=== PATIENT | female | born 1980 | race Caucasian/White ===

== ENCOUNTER 2017-05-08 19:19 | Emergency (ER) | payer MEDICAID ==
[~2017-05-08] VITALS: Ht 175.3 cm; Wt 60.0 kg
[~2017-05-08 19:19] MED LIST: CLON1TAB23; DOCU-30 PO; ETAN50PE IM; FLAX100029 PO; FOLI-17 PO; HYDR-3144 PO; HYDR-3240; KETO10TA PO; PROM25SU35 PR; PROM25TA10 PO; PROM50VI; TRAM-28 PO; ZOLP10TA PO; ZOLP5TAB2
[2017-05-08] MEDS ORDERED: PROMETHAZINE 25 MG/ML, 1ML IM ONE (20:30)
[2017-05-08] MEDS ORDERED: MORPHINE SULFATE 4 MG/ML, 1ML IVPush PRN (20:30)
[2017-05-08] MEDS ORDERED: SODIUM CHLORIDE FLUSH 10ML SYR IVF ONE (20:30)
[2017-05-08] MEDS ORDERED: SODIUM CHLORIDE 0.9% 1,000ML IVBOLUS ONE (20:30)
[2017-05-08 21:04] LABS: ASPARTATE AMINO TRANSFERASE 16 U/L (15-37); BLOOD UREA NITROGEN 10 mg/dL (7-18)
[2017-05-08] MEDS ORDERED: MORPHINE SULFATE 4 MG/ML, 1ML ONE (21:27)
[2017-05-08] MEDS ORDERED: PROMETHAZINE 25 MG/ML, 1ML ONE (21:27)
[2017-05-08 22:45] VITALS: BP 134/92
[2017-05-08] MEDS ORDERED: OMNIPAQUE 350 MG/ML, 100ML BOTTLE ONE (22:48)
== END 2017-05-08 23:47 | disposition home or self-care (01) ==
LOC: ED 21:52
DX: R10.31 Right lower quadrant pain (principal); R11.0 Nausea; Z90.710 Acquired absence of both cervix and uterus
CPT/HCPCS: 36415; 74177; 76856; 80053; 81003; 85025; 96361; 96372; 96374; 99285; J2550; J7030; Q9967

== ENCOUNTER 2018-05-30 21:54 | Emergency (ER) | payer MEDICAID ==
[~2018-05-30] VITALS: Ht 175.3 cm; Wt 65.0 kg
[~2018-05-30 21:54] MED LIST changes: +DOCU-131 PO; -DOCU-30 PO; -HYDR-3144 PO; +HYDR-3245 PO; -TRAM-28 PO; +TRAM-47 PO
[2018-05-30 21:56] VITALS: BP 137/88
[2018-05-30] MEDS ORDERED: HYDROcodone/APAP 5/325 TABLET ONE (22:27)
[2018-05-30] MEDS ORDERED: HYDROcodone/APAP 5/325 TABLET PO ONE (22:30)
[2018-05-30] MEDS ORDERED: KETOROLAC 30 MG/1 ML ONE (23:17)
[2018-05-30] MEDS ORDERED: KETOROLAC 30 MG/1 ML IM ONE (23:30)
== END 2018-05-30 23:25 | disposition home or self-care (01) ==
LOC: ED 23:20
DX: M75.91 Shoulder lesion, unspecified, right shoulder (principal); G43.909 Migraine, unspecified, not intractable, without status migrainosus
CPT/HCPCS: 73030; 96372; 99284; J1885

== ENCOUNTER 2018-10-04 22:26 | Emergency (ER) | payer MEDICAID ==
[~2018-10-04] VITALS: Ht 175.3 cm; Wt 64.3 kg
[2018-10-04 22:30] VITALS: BP 127/51
== END 2018-10-04 22:54 | disposition home or self-care (01) ==
LOC: ED 22:30
DX: M79.671 Pain in right foot (principal); M79.672 Pain in left foot; F17.200 Nicotine dependence, unspecified, uncomplicated; Z88.5 Allergy status to narcotic agent; Z88.8 Allergy status to other drugs, medicaments and biological substances
CPT/HCPCS: 99283

== ENCOUNTER 2019-04-23 17:45 | Emergency (ER) | payer MEDICAID ==
[~2019-04-23] VITALS: Ht 175.3 cm; Wt 70.0 kg
[2019-04-23 18:31] LABS: BASOPHILS # (AUTO) 0.04 x10^3/uL (0-0.1); BASOPHILS % (AUTO) 1 % (0-1); EOSINOPHILS # (AUTO) 0.25 x10^3/uL (0-0.4); EOSINOPHILS % (AUTO) 4 % (1-7); LYMPHOCYTES # (AUTO) 2.85 x10^3/uL (1-3.4); LYMPHOCYTES % (AUTO) 43 % (22-44); MD NO; MEAN CORPUSCULAR HEMOGLOBIN 29.7 pg (27.0-34.8); MEAN CORPUSCULAR HGB CONC 33.1 g/dL (32.4-35.8); MEAN CORPUSCULAR VOLUME 89.7 fL (80-100); MEAN PLATELET VOLUME 6.5 fL (7.4-10.4); MONOCYTES # (AUTO) 0.38 x10^3/uL (0.2-0.8); MONOCYTES % (AUTO) 6 % (2-9); NEUTROPHILS # (AUTO) 3.12 x10^3/uL (1.8-6.8); NEUTROPHILS % (AUTO) 47 % (42-75); PLATELET COUNT 378 x10^3/uL (130-400); RED BLOOD COUNT 4.81 x10^6/uL (3.82-5.3); RED CELL DISTRIBUTION WIDTH 13.3 % (9.6-15.2)
[2019-04-23 18:43] LABS: ALBUMIN 3.8 g/dL (3.4-5.0); ANION GAP 4 mmol/L (5-15); CALCIUM 8.7 mg/dL (8.5-10.1); CHLORIDE 111 mmol/L (98-107)
[2019-04-23 18:48] LABS: ALANINE AMINOTRANSFERASE 23 U/L (12-78); ALKALINE PHOSPHATASE 59 U/L (45-117); BILIRUBIN,TOTAL 0.4 mg/dL (0.2-1.0); CREATININE 0.72 mg/dL (0.55-1.02); TOTAL PROTEIN 7.2 g/dL (6.4-8.2); TROPONIN I < 0.015 ng/mL (0.000-0.045)
--- NOTE | 2019-04-23 18:48 | NUR ---
Pt to rm [facility]
--- NOTE | 2019-04-23 19:06 | NUR ---
PT AMBULATED STEADILY TO ROOM WITH CONTRACTS MANAGER. PT CO SUDDEN ONSET BUE/BLE TINGLING AND CHEST TIGHTNESS X TODAY WHILE LAYING IN BED. RESPIRATIONS SLIGHTLY RAPID, 20'S. SPO2 >90% ON RA. NAD NOTED. PT ALSO CO RLQ PAIN X "ABOUT A WEEK". DENIES N/V/D/FEVER. "I HAVE A BLADDER SLING RIGHT THERE". HX OF HYST. DENIES URINARY S/S. BP/SPO2/ECG MONITORING IN PLACE. NSR ON MONITOR. UA COLLECTED AND WALKED TO LAB
[2019-04-23 19:11] LABS: MICROSCOPIC NOT IND
[2019-04-23 19:14] LABS: CULTURE INDICATED? NO
[2019-04-23] MEDS ORDERED: KETOROLAC 30 MG/1 ML IM ONE (19:30)
[2019-04-23] MEDS ORDERED: KETOROLAC 30 MG/1 ML ONE (19:48)
--- NOTE | 2019-04-23 19:52 | NUR ---
MEDICATED PER EMAR FOR 05/23 PAIN
--- NOTE | 2019-04-23 20:32 | NUR ---
PT IN US AT THIS TIME
[2019-04-23 21:30] VITALS: BP 110/70
--- NOTE | 2019-04-23 21:31 | NUR ---
PT RESTING QUIETLY IN NEGRO BLUE NOTED. AWAKE/ALERT. PT UPDATED TO POC (AWAITING US READ/RECHECK/DISPO) AND DEMONSTRATES UNDERSTANDING. CALLED [employer] TO FOLLOW UP ON STATUS OF US READ. [employer] STATES THAT "RADIOLOGIST WAS WAITING TO COMBINE BOTH READS AND IT MAY TAKE A DAY". ERP MADE AWARE. NO NEW ORDERS RECEIVED
--- NOTE | 2019-04-23 21:57 | NUR ---
DC EDUCATION PROVIDED, PT DEMONSTRATES UNDERSTANDING. PT AMBULATED STEADILY TO [facility] RN
== END 2019-04-23 21:58 | disposition home or self-care (01) ==
LOC: ED 20:16
DX: R07.89 Other chest pain (principal); R10.31 Right lower quadrant pain; F45.8 Other somatoform disorders; F17.200 Nicotine dependence, unspecified, uncomplicated; M06.9 Rheumatoid arthritis, unspecified; Z88.5 Allergy status to narcotic agent; Z90.710 Acquired absence of both cervix and uterus
CPT/HCPCS: 36415; 76830; 76857; 80053; 81003; 83690; 83880; 84484; 85025; 93005; 96372; 99284; J1885

== ENCOUNTER 2020-08-14 18:24 | Emergency (ER) | payer MEDICAID ==
[~2020-08-14] VITALS: Ht 175.3 cm; Wt 66.5 kg
[2020-08-14 19:12] LABS: MICROSCOPIC NOT IND
--- NOTE | 2020-08-14 19:58 | NUR ---
precision grinder external: Pt to room from lobby at this time.
[2020-08-14] MEDS ORDERED: SODIUM CHLORIDE FLUSH 10ML SYR IVF ONE (20:00)
[2020-08-14] MEDS ORDERED: MORPHINE SULFATE 4 MG/ML, 1ML IVPush PRN (20:00)
[2020-08-14] MEDS ORDERED: PROMETHAZINE 25 MG/ML, 1ML IM ONE (20:00)
[2020-08-14] MEDS ORDERED: PROMETHAZINE 25 MG/ML, 1ML ONE (20:06)
[2020-08-14] MEDS ORDERED: MORPHINE SULFATE 4 MG/ML, 1ML ONE ×2 (20:06→22:46)
[2020-08-14 20:35] LABS: BASOPHILS # (AUTO) 0.05 x10^3/uL (0-0.1); BASOPHILS % (AUTO) 1 % (0-1); EOSINOPHILS # (AUTO) 0.15 x10^3/uL (0-0.4); EOSINOPHILS % (AUTO) 2 % (1-7); LYMPHOCYTES # (AUTO) 2.39 x10^3/uL (1-3.4); LYMPHOCYTES % (AUTO) 34 % (22-44); MD NO; MEAN CORPUSCULAR HEMOGLOBIN 28.8 pg (27.0-34.8); MEAN CORPUSCULAR HGB CONC 33.2 g/dL (32.4-35.8); MEAN PLATELET VOLUME 7.3 fL (7.4-10.4); MONOCYTES # (AUTO) 0.31 x10^3/uL (0.2-0.8); MONOCYTES % (AUTO) 4 % (2-9); NEUTROPHILS # (AUTO) 4.19 x10^3/uL (1.8-6.8); NEUTROPHILS % (AUTO) 59 % (42-75); PLATELET COUNT 394 x10^3/uL (130-400)
[2020-08-14 20:44] LABS: ALANINE AMINOTRANSFERASE 19 U/L (12-78); ALBUMIN 4.1 g/dL (3.4-5.0); ANION GAP 7 mmol/L (5-15); CALCIUM 9.2 mg/dL (8.5-10.1); CHLORIDE 107 mmol/L (98-107)
[2020-08-14 20:46] LABS: ALKALINE PHOSPHATASE 55 U/L (45-117); BILIRUBIN,TOTAL 0.4 mg/dL (0.2-1.0); TOTAL PROTEIN 7.6 g/dL (6.4-8.2)
--- NOTE | 2020-08-14 21:01 | NUR ---
Traveled to [place] with [email or web address]
[2020-08-14] MEDS ORDERED: FLUCONAZOLE 100 MG TABLET PO ONE (22:30)
[2020-08-14] MEDS ORDERED: FLUCONAZOLE 100 MG TABLET ONE (22:30)
[2020-08-14] MEDS ORDERED: METOCLOPRAMIDE 5 MG/ML, 2ML ONE (22:44)
[2020-08-14] MEDS ORDERED: METOCLOPRAMIDE 5 MG/ML, 2ML IVPush ONE (23:00)
[2020-08-14] MEDS ORDERED: METOCLOPRAMIDE 10MG TABLET PO PRN (23:00)
[2020-08-15 00:08] VITALS: BP 111/71
--- NOTE | 2020-08-15 00:09 | NUR ---
[facility] care, meds, and f/u discussed with task RN
== END 2020-08-15 00:10 | disposition home or self-care (01) ==
LOC: ED 20:09
DX: N83.291 Other ovarian cyst, right side (principal); R33.9 Retention of urine, unspecified; B37.3 Candidiasis of vulva and vagina; M06.9 Rheumatoid arthritis, unspecified; Z90.710 Acquired absence of both cervix and uterus
CPT/HCPCS: 36415; 76830; 80053; 81003; 85025; 96372; 96374; 99284; J2270; J2550

== ENCOUNTER 2020-08-15 12:49 | Emergency (ER) | payer MEDICAID ==
[~2020-08-15] VITALS: Ht 175.3 cm; Wt 67.8 kg
[2020-08-15 13:54] LABS: BASOPHILS # (AUTO) 0.06 x10^3/uL (0-0.1); BASOPHILS % (AUTO) 1 % (0-1); EOSINOPHILS # (AUTO) 0.18 x10^3/uL (0-0.4); EOSINOPHILS % (AUTO) 3 % (1-7); LYMPHOCYTES # (AUTO) 2.33 x10^3/uL (1-3.4); LYMPHOCYTES % (AUTO) 33 % (22-44); MD NO; MEAN CORPUSCULAR HEMOGLOBIN 28.9 pg (27.0-34.8); MEAN PLATELET VOLUME 7.1 fL (7.4-10.4); MONOCYTES % (AUTO) 4 % (2-9); NEUTROPHILS # (AUTO) 4.28 x10^3/uL (1.8-6.8); NEUTROPHILS % (AUTO) 60 % (42-75); PLATELET COUNT 365 x10^3/uL (130-400); RED BLOOD COUNT 4.79 x10^6/uL (3.82-5.3); RED CELL DISTRIBUTION WIDTH 13.3 % (9.6-15.2)
--- NOTE | 2020-08-15 13:55 | NUR ---
TO LORNA FROM LOBBY
[2020-08-15 14:05] LABS: ALANINE AMINOTRANSFERASE 19 U/L (12-78); ALBUMIN 4.1 g/dL (3.4-5.0); ANION GAP 5 mmol/L (5-15); CHLORIDE 106 mmol/L (98-107); CREATININE 0.79 mg/dL (0.55-1.02)
[2020-08-15 14:08] LABS: ALKALINE PHOSPHATASE 56 U/L (45-117); BILIRUBIN,TOTAL 0.4 mg/dL (0.2-1.0); TOTAL PROTEIN 7.8 g/dL (6.4-8.2)
--- NOTE | 2020-08-15 14:33 | NUR ---
BEDSIDE REPORT TO CJ LARA
[2020-08-15 14:52] LABS: MICROSCOPIC AUTO
[2020-08-15] MEDS ORDERED: OXYcodone/APAP 5/325MG TABLET ONE (15:19)
[2020-08-15] MEDS ORDERED: OXYcodone/APAP 5/325MG TABLET PO ONE (15:30)
[2020-08-15 15:35] VITALS: BP 103/55
== END 2020-08-15 15:43 | disposition home or self-care (01) ==
LOC: ED 13:59
DX: R10.2 Pelvic and perineal pain (principal); R33.9 Retention of urine, unspecified; R31.9 Hematuria, unspecified; Z87.891 Personal history of nicotine dependence
CPT/HCPCS: 36415; 51702; 80053; 81001; 85025; 87086; 99284

== ENCOUNTER 2020-08-25 15:05 | Emergency (ER) | payer MEDICAID ==
[~2020-08-25] VITALS: Ht 175.3 cm; Wt 67.6 kg
[2020-08-25 15:09] VITALS: BP 133/67
[2020-08-25] MEDS ORDERED: MORPHINE SULFATE 4 MG/ML, 1ML IVPush PRN (15:30)
[2020-08-25] MEDS ORDERED: SODIUM CHLORIDE FLUSH 10ML SYR IVF ONE (15:30)
[2020-08-25] MEDS ORDERED: ONDANSETRON 2MG/ML, 2ML IVPush ONE (15:30)
[2020-08-25] MEDS ORDERED: ONDANSETRON 2MG/ML, 2ML ONE (15:43)
[2020-08-25] MEDS ORDERED: MORPHINE SULFATE 4 MG/ML, 1ML ONE (15:43)
[2020-08-25] MEDS ORDERED: METOCLOPRAMIDE 5 MG/ML, 2ML ONE (15:49)
[2020-08-25 15:59] LABS: BASOPHILS % (AUTO) 1 % (0-1); EOSINOPHILS % (AUTO) 2 % (1-7); LYMPHOCYTES % (AUTO) 29 % (22-44); MEAN CORPUSCULAR HEMOGLOBIN 28.5 pg (27.0-34.8); MEAN CORPUSCULAR HGB CONC 33.3 g/dL (32.4-35.8); MEAN PLATELET VOLUME 7.1 fL (7.4-10.4); MONOCYTES % (AUTO) 6 % (2-9); NEUTROPHILS % (AUTO) 63 % (42-75); PLATELET COUNT 325 x10^3/uL (130-400); RED BLOOD COUNT 4.87 x10^6/uL (3.82-5.3); RED CELL DISTRIBUTION WIDTH 12.8 % (9.6-15.2)
[2020-08-25] MEDS ORDERED: METOCLOPRAMIDE 5 MG/ML, 2ML IVPush ONE (16:00)
[2020-08-25 16:02] LABS: MD NO
[2020-08-25 16:07] LABS: MICROSCOPIC INDICATED
[2020-08-25 16:09] LABS: ALBUMIN 4.1 g/dL (3.4-5.0); ANION GAP 6 mmol/L (5-15); CHLORIDE 109 mmol/L (98-107)
[2020-08-25 16:16] LABS: ALANINE AMINOTRANSFERASE 19 U/L (12-78); ALKALINE PHOSPHATASE 58 U/L (45-117); BILIRUBIN,TOTAL 0.4 mg/dL (0.2-1.0); CREATININE 0.73 mg/dL (0.55-1.02)
--- NOTE | 2020-08-25 16:28 | NUR ---
PT COMES IN WITH COMPLAINTS OF LOWER ABDOMINAL PAIN WORENING. STATES SHE WAS JUST HERE AND HAS AN APPT WITH URINOLOGY COMING UP BUT COULDNT WAIT. PT STATES THAT SHE WAS SWABBED FOR COVID YESTERDAY. PATIENT DENIES SYMPTOMS, NOTED TO HAVE OCCATIONAL COUGH.
[2020-08-25] MEDS ORDERED: HYDROmorphone 2 MG/ML, 1ML ONE (16:58)
[2020-08-25] MEDS ORDERED: HYDROmorphone 2 MG/ML, 1ML IVPush PRN (17:00)
--- NOTE | 2020-08-25 17:56 | NUR ---
RX FOR ZOFRAN CANCELLED, PT TO JUST TAKE BENADRYL FOR NAUSEA OK PER ERP.
== END 2020-08-25 17:58 | disposition home or self-care (01) ==
LOC: ED 15:30
DX: N83.291 Other ovarian cyst, right side (principal); R10.31 Right lower quadrant pain; M06.9 Rheumatoid arthritis, unspecified; Z90.710 Acquired absence of both cervix and uterus; Z87.891 Personal history of nicotine dependence
CPT/HCPCS: 36415; 76830; 80053; 81001; 84703; 85025; 87086; 96374; 96375; 99284; J1170; J2270; J2765

== ENCOUNTER 2020-09-02 12:48 | Emergency (ER) | payer MEDICAID ==
[~2020-09-02] VITALS: Ht 175.3 cm; Wt 65.3 kg
[2020-09-02 12:51] VITALS: BP 119/72
--- NOTE | 2020-09-02 13:01 | NUR ---
INITIAL PT CONTACT. PT PRESENTS TO ED C/O BILATERAL WRIST PAIN, RIGHT ANKLE PAIN, RIGHT ALEJANDRO PAIN AND NECK PAIN FOLLOWING A FALL OUT OF BED SPEECH COMMUNICATION PROFESSOR. PT STATES SHE WAS "TRYING TO GET HER PHONE OFF OF THE BEDSIDE TABLE AND HIT HER BODY ON THE GROUND AND NIGHTSTAND". PT STATES SHE ALSO HAS RLQ ABD PAIN, PT STATES "I HAVE OVARIAN CYSTS AND I THINK ONE RUPTURED". PT DENIES ANY NEEDS AT THIS TIME. CALL LIGHT WITHIN REACH. WILL CONTINUE TO MONITOR.
[2020-09-02] MEDS ORDERED: KETOROLAC 30 MG/1 ML ONE (13:11)
--- NOTE | 2020-09-02 13:20 | NUR ---
PT TO IMAGING
[2020-09-02] MEDS ORDERED: KETOROLAC 30 MG/1 ML IM ONE (13:30)
[2020-09-02 13:42] LABS: BASOPHILS % (AUTO) 1 % (0-1); EOSINOPHILS % (AUTO) 2 % (1-7); LYMPHOCYTES % (AUTO) 38 % (22-44); MEAN CORPUSCULAR HEMOGLOBIN 28.1 pg (27.0-34.8); MEAN CORPUSCULAR HGB CONC 33.1 g/dL (32.4-35.8); MONOCYTES % (AUTO) 6 % (2-9); NEUTROPHILS % (AUTO) 53 % (42-75); PLATELET COUNT 345 x10^3/uL (130-400); RED BLOOD COUNT 4.63 x10^6/uL (3.82-5.3); RED CELL DISTRIBUTION WIDTH 13.2 % (9.6-15.2)
[2020-09-02 13:44] LABS: MD NO
[2020-09-02 13:46] LABS: ALBUMIN 3.9 g/dL (3.4-5.0); ANION GAP 6 mmol/L (5-15); CHLORIDE 110 mmol/L (98-107); CREATININE 0.65 mg/dL (0.55-1.02)
--- NOTE | 2020-09-02 13:59 | NUR ---
BREAK RN FOR PRIMARY RN'S LOCO. PT REMAINS IN RAD/US
--- NOTE | 2020-09-02 14:28 | NUR ---
BREAK RN. REPORT AND TRANSFER OF CARE BACK TO PRIMARY MARCO ROMERO AT THIS TIME
--- NOTE | 2020-09-02 15:02 | NUR ---
Patient given discharge instructions and they have confirmed that they understand the instructions. Patient to d/c desk with crutches.
== END 2020-09-02 15:04 | disposition home or self-care (01) ==
LOC: ED 14:15
DX: G89.11 Acute pain due to trauma (principal); M79.661 Pain in right lower leg; M25.571 Pain in right ankle and joints of right foot; M25.532 Pain in left wrist; M25.531 Pain in right wrist; R10.31 Right lower quadrant pain; G43.909 Migraine, unspecified, not intractable, without status migrainosus; M19.90 Unspecified osteoarthritis, unspecified site; W06.XXXA Fall from bed, initial encounter; Y93.89 Activity, other specified; Y92.89 Other specified places as the place of occurrence of the external cause; Y99.8 Other external cause status
CPT/HCPCS: 36415; 73110; 73590; 73610; 76830; 80048; 82040; 85025; 96372; 99285; J1885

== ENCOUNTER 2020-10-08 14:51 | Emergency (ER) | payer MEDICAID ==
[~2020-10-08] VITALS: Ht 175.3 cm; Wt 64.3 kg
[2020-10-08 15:32] LABS: BASOPHILS % (AUTO) 1 % (0-1); EOSINOPHILS % (AUTO) 2 % (1-7); LYMPHOCYTES % (AUTO) 39 % (22-44); MEAN PLATELET VOLUME 6.9 fL (7.4-10.4); MONOCYTES % (AUTO) 5 % (2-9); NEUTROPHILS % (AUTO) 53 % (42-75); PLATELET COUNT 365 x10^3/uL (130-400); RED BLOOD COUNT 4.75 x10^6/uL (3.82-5.3); RED CELL DISTRIBUTION WIDTH 13.3 % (9.6-15.2)
[2020-10-08 15:40] LABS: MD NO
[2020-10-08 15:42] LABS: ALBUMIN 4.2 g/dL (3.4-5.0); ANION GAP 7 mmol/L (5-15); CHLORIDE 110 mmol/L (98-107)
[2020-10-08 15:46] LABS: ALANINE AMINOTRANSFERASE 12 U/L (12-78); ALKALINE PHOSPHATASE 51 U/L (45-117); BILIRUBIN,TOTAL 0.3 mg/dL (0.2-1.0); CREATININE 0.69 mg/dL (0.55-1.02); TOTAL PROTEIN 7.8 g/dL (6.4-8.2)
--- NOTE | 2020-10-08 17:48 | NUR ---
PT TO RM FROM LOBBY AT THIS TIME
--- NOTE | 2020-10-08 18:36 | NUR ---
POST-VOID RESIDUAL BLADDER SCAN IS 11ML. DR. HURT NOTIFIED. URINE COLLECTED AND SENT TO LAB. VS UPDATED AND WNL. DR. HURT TO DO PELVIC EXAM.
[2020-10-08 18:37] VITALS: BP 132/70
--- NOTE | 2020-10-08 18:50 | NUR ---
REPORT FROM SANDRA LARA ASSUMING CARE OF PT AT THIS TIME
[2020-10-08 18:51] LABS: MICROSCOPIC NOT IND
[2020-10-08] MEDS ORDERED: MORPHINE SULFATE 4 MG/ML, 1ML ONE ×2 (18:57→20:12)
[2020-10-08] MEDS ORDERED: PROMETHAZINE 25 MG/ML, 1ML ONE (18:57)
[2020-10-08] MEDS ORDERED: PROMETHAZINE 25 MG/ML, 1ML IM ONE (19:00)
[2020-10-08] MEDS: MORPHINE SULFATE 4 MG/ML, 1ML IVPush PRN ×2 (19:09→20:14)
[2020-10-08] MEDS ORDERED: OMNIPAQUE 350 MG/ML, 100ML BOTTLE ONE (19:35)
--- NOTE | 2020-10-08 20:52 | NUR ---
DR HURT AT BEDSIDE FOR PELVIC AT THIS TIME RN TO ACCOMPANY
== END 2020-10-08 21:58 | disposition home or self-care (01) ==
LOC: ED 19:35
DX: G89.29 Other chronic pain (principal); R10.30 Lower abdominal pain, unspecified; R53.1 Weakness
CPT/HCPCS: 36415; 74177; 80053; 81003; 85025; 96372; 96374; 96376; 99285; J2270; J2550; Q9967

== ENCOUNTER 2020-10-30 13:07 | Emergency (ER) | payer MEDICAID ==
[~2020-10-30] VITALS: Ht 175.3 cm; Wt 68.0 kg
--- NOTE | 2020-10-30 13:16 | NUR ---
TRIAGE: PATIENT ARRIVES WITH RIGHT ABDOMINAL PAIN. SHE IS SCHEDULED TO GET BLADDER SLING REMOVED ON Oct, IT'S BEEN IN PLACE 6 YEARS. MD LEE STATED THAT IF ABDOMINAL PAIN WORSENED TO COME TO ER, STATES PAIN WORSENED TODAY. GAVE UA CUP FOR LAB.
[2020-10-30 14:14] LABS: BASOPHILS % (AUTO) 2 % (0-1); EOSINOPHILS % (AUTO) 1 % (1-7); LYMPHOCYTES % (AUTO) 38 % (22-44); MEAN CORPUSCULAR HEMOGLOBIN 29.1 pg (27.0-34.8); MEAN PLATELET VOLUME 6.7 fL (7.4-10.4); MONOCYTES % (AUTO) 6 % (2-9); NEUTROPHILS % (AUTO) 54 % (42-75); PLATELET COUNT 378 x10^3/uL (130-400); RED BLOOD COUNT 4.43 x10^6/uL (3.82-5.3); RED CELL DISTRIBUTION WIDTH 12.9 % (9.6-15.2)
[2020-10-30 14:15] LABS: MD NO
[2020-10-30 14:24] LABS: ALANINE AMINOTRANSFERASE 20 U/L (12-78); ANION GAP 6 mmol/L (5-15); CALCIUM 8.9 mg/dL (8.5-10.1); CHLORIDE 110 mmol/L (98-107); CREATININE 0.67 mg/dL (0.55-1.02)
[2020-10-30 14:26] LABS: ALKALINE PHOSPHATASE 58 U/L (45-117); BILIRUBIN,TOTAL 0.5 mg/dL (0.2-1.0); TOTAL PROTEIN 7.5 g/dL (6.4-8.2); TROPONIN I < 0.015 ng/mL (0.000-0.045)
[2020-10-30 14:55] LABS: MICROSCOPIC NOT IND
--- NOTE | 2020-10-30 16:41 | NUR ---
ASSISTANT FRONT OFFICE MANAGER: PT TO ROOM FROM LOBBY
[2020-10-30] MEDS ORDERED: KETOROLAC 30 MG/1 ML IVPush ONE (17:30)
[2020-10-30] MEDS ORDERED: HYDROmorphone 1 MG/ML, 1ML INJ ONE ×2 (17:38→18:57)
[2020-10-30] MEDS ORDERED: KETOROLAC 30 MG/1 ML ONE (17:38)
[2020-10-30] MEDS: HYDROmorphone 1 MG/ML, 1ML INJ IVPush PRN ×2 (17:52→19:00)
--- NOTE | 2020-10-30 17:57 | NUR ---
MEDICATED PER ORDERS, PT TOLERATED WELL
--- NOTE | 2020-10-30 18:17 | NUR ---
PT REQUESTING PHENERGAN OR COMPAZINE FOR NAUSEA, WILL FOLLOW UP WITH
[2020-10-30] MEDS ORDERED: PROCHLORPERAZINE 5 MG/ML, 2ML IVPush ONE (18:30)
[2020-10-30] MEDS ORDERED: PROCHLORPERAZINE 5 MG/ML, 2ML ONE (18:32)
--- NOTE | 2020-10-30 18:36 | NUR ---
PT IN ULTRASOUND
--- NOTE | 2020-10-30 19:34 | NUR ---
MEDICATED PER ORDER, VSS. PT UP FOR DC.
[2020-10-30 19:44] VITALS: BP 128/74
== END 2020-10-30 19:47 | disposition home or self-care (01) ==
LOC: ED 19:41
DX: N83.291 Other ovarian cyst, right side (principal); G89.29 Other chronic pain; R10.11 Right upper quadrant pain; R10.31 Right lower quadrant pain; R19.7 Diarrhea, unspecified; R11.2 Nausea with vomiting, unspecified; R07.89 Other chest pain; M19.90 Unspecified osteoarthritis, unspecified site; Z90.710 Acquired absence of both cervix and uterus; Z90.721 Acquired absence of ovaries, unilateral
CPT/HCPCS: 36415; 71045; 76830; 80053; 81003; 83690; 84484; 85025; 93005; 96374; 96375; 96376; 99285; J0780; J1170; J1885

== ENCOUNTER → 2020-11-04 | Outpatient (CLI) | payer MEDICAID ==
[~2020-11-04] MED LIST changes: +ALPR0.5T6 PO; +CLON1TAB11 PO; +IBUP-1223 PO; +NAPR-685 PO; +ZOLP5TAB6 PO
== END | disposition home or self-care (01) ==
LOC: STAR 10:06
PROVIDERS: ATTEND Obstetrics & Gynecology Female Pelvic Medicine and Reconstructive Surgery
DX: Z20.828 Contact with and (suspected) exposure to other viral communicable diseases (principal); R32 Unspecified urinary incontinence; R10.2 Pelvic and perineal pain; N81.10 Cystocele, unspecified; N81.6 Rectocele
CPT/HCPCS: 87635

== ENCOUNTER 2020-11-10 05:31 | Day surgery (SDC) | payer MEDICAID ==
[~2020-11-10] VITALS: Ht 175.3 cm; Wt 62.0 kg
[2020-11-10 06:21] VITALS: BP 117/72
[2020-11-10] MEDS ORDERED: LACTATED RINGERS 1,000 ML IV SCH (06:30)
[2020-11-10] MEDS ORDERED: CHLORHEXIDINE 15 ML UDC MM ONE (06:30)
[2020-11-10] MEDS ORDERED: BUPIVACAINE/PF 0.5% ONE (07:03)
[2020-11-10] MEDS ORDERED: EPINEPHRINE 1 MG/ML, 1ML ONE (07:03)
[2020-11-10] MEDS ORDERED: BUPIVACAINE/PF 0.25% ONE (07:10)
[2020-11-10] MEDS ORDERED: NEOMY/POLYMYXIN B GU IRR. 1 ML ONE (07:18)
[2020-11-10] MEDS ORDERED: FENTANYL PF 250 MCG/5ML ONE (07:19)
[2020-11-10] MEDS ORDERED: MIDAZOLAM 1 MG/ML, 2ML ONE (07:19)
[2020-11-10] MEDS ORDERED: DEXMEDETOMIDINE 200 MCG/2 ML ONE (07:26)
[2020-11-10] MEDS ORDERED: MEPERIDINE/PF 25MG/0.5ML IVPush PRN (07:30)
[2020-11-10] MEDS ORDERED: OXYcodone 5 MG/5 ML ORAL.SOL UDC PO PRN (07:30)
[2020-11-10] MEDS ORDERED: DIPHENHYDRAMINE 50 MG/ML, 1ML IVPush PRN (07:30)
[2020-11-10] MEDS ORDERED: hydrALAzine 20 MG/ML, 1ML IV PRN (07:30)
[2020-11-10] MEDS ORDERED: PROMETHAZINE 25 MG/ML, 1ML IVPush PRN (07:30)
[2020-11-10] MEDS ORDERED: LABETALOL 5MG/ML, 20ML IV PRN (07:30)
[2020-11-10] MEDS ORDERED: BUPIVACAINE/PF-EPI 0.25% 1:200K INFIL ONE (08:05)
[2020-11-10] MEDS ORDERED: PROPOFOL 10 MG/ML, 20ML ONE (08:14)
[2020-11-10] MEDS ORDERED: NEOSTIGMINE 1 MG/ML, 10ML ONE (08:14)
[2020-11-10] MEDS ORDERED: CEFAZOLIN 1,000 MG ONE (08:14)
[2020-11-10] MEDS ORDERED: SUCCINYLCHOLINE 20 MG/ML, 10ML ONE (08:14)
[2020-11-10] MEDS ORDERED: GLYCOPYRROLATE 0.2MG/1ML, 5ML ONE (08:14)
[2020-11-10] MEDS ORDERED: ROCURONIUM 10MG/ML,5ML ONE (08:14)
[2020-11-10] MEDS ORDERED: ONDANSETRON 2MG/ML, 2ML ONE (08:14)
[2020-11-10] MEDS ORDERED: PROMETHAZINE 25 MG/ML, 1ML ONE (08:47)
[2020-11-10] MEDS ORDERED: FENTANYL PF 100 MCG/2ML ONE (08:51)
[2020-11-10] MEDS: FENTANYL PF 100 MCG/2ML IV PRN ×3 (08:53→09:26)
[2020-11-10] MEDS ORDERED: LORazepam 2 MG/ML, 1ML ONE (08:57)
[2020-11-10] MEDS ORDERED: LORazepam 2 MG/ML, 1ML IVPush PRN (09:00)
[2020-11-10] MEDS ORDERED: KETOROLAC 30 MG/1 ML IVPush PRN (10:00)
[2020-11-10] MEDS ORDERED: HYDROcodone/APAP 5/325 TABLET PO PRN (10:00)
[2020-11-10] MEDS ORDERED: HYDROmorphone 2 MG/ML, 1ML IVPush PRN (10:00)
[2020-11-10] MEDS ORDERED: KETOROLAC 30 MG/1 ML ONE (10:08)
[2020-11-10] MEDS: HYDROmorphone 1 MG/ML, 1ML INJ IVPush PRN ×3 (10:18→11:59)
[2020-11-10] MEDS ORDERED: NATALIZUMAB 300 MG in SODIUM CHLORIDE 0.9% 100 ML IV ONE (10:30)
[2020-11-10] MEDS ORDERED: SCOPOLAMINE 1MG PATCH TD ONE ×2 (10:30→10:36)
[2020-11-10] MEDS: HYDROcodone/APAP 7.5-325MG/15ML UDC PO PRN ×2 (10:51→12:00)
== END 2020-11-10 13:30 | disposition home or self-care (01) ==
LOC: OR 05:31 → OUT 13:30
PROVIDERS: ATTEND Obstetrics & Gynecology Female Pelvic Medicine and Reconstructive Surgery
DX: N39.46 Mixed incontinence (principal); N83.11 Corpus luteum cyst of right ovary; N81.10 Cystocele, unspecified; N81.5 Vaginal enterocele; G43.909 Migraine, unspecified, not intractable, without status migrainosus; J45.909 Unspecified asthma, uncomplicated; F31.9 Bipolar disorder, unspecified; M06.9 Rheumatoid arthritis, unspecified; F12.90 Cannabis use, unspecified, uncomplicated; Z88.8 Allergy status to other drugs, medicaments and biological substances; Z98.51 Tubal ligation status; Z98.890 Other specified postprocedural states; Z90.49 Acquired absence of other specified parts of digestive tract; Z79.899 Other long term (current) drug therapy; Z87.891 Personal history of nicotine dependence; Z90.710 Acquired absence of both cervix and uterus
CPT/HCPCS: 57265; 57282; 57288; 58662; 88305; C1771; J0171; J0330; J0690; J1170; J1885; J2250; J2405; J2550; J2704; J2710; J3010; J7120

== ENCOUNTER 2020-11-12 21:38 | Emergency (ER) | payer MEDICAID ==
[~2020-11-12] VITALS: Ht 175.3 cm; Wt 65.6 kg
[2020-11-12] MEDS ORDERED: MORPHINE SULFATE 4 MG/ML, 1ML IVPush PRN (22:30)
[2020-11-12] MEDS ORDERED: METOCLOPRAMIDE 5 MG/ML, 2ML IVPush ONE (22:30)
[2020-11-12 22:41] LABS: BASOPHILS % (AUTO) 1 % (0-1); EOSINOPHILS % (AUTO) 4 % (1-7); LYMPHOCYTES % (AUTO) 43 % (22-44); MEAN CORPUSCULAR HGB CONC 33.3 g/dL (32.4-35.8); MEAN PLATELET VOLUME 6.6 fL (7.4-10.4); MONOCYTES % (AUTO) 7 % (2-9); NEUTROPHILS % (AUTO) 47 % (42-75); PLATELET COUNT 349 x10^3/uL (130-400); RED BLOOD COUNT 4.22 x10^6/uL (3.82-5.3); RED CELL DISTRIBUTION WIDTH 13.5 % (9.6-15.2)
[2020-11-12] MEDS ORDERED: METOCLOPRAMIDE 5 MG/ML, 2ML ONE (22:44)
[2020-11-12] MEDS ORDERED: MORPHINE SULFATE 4 MG/ML, 1ML ONE (22:45)
[2020-11-12 22:48] LABS: MD NO
[2020-11-12 22:52] LABS: ALANINE AMINOTRANSFERASE 17 U/L (12-78); ALBUMIN 3.4 g/dL (3.4-5.0); ANION GAP 3 mmol/L (5-15); CALCIUM 8.5 mg/dL (8.5-10.1); CHLORIDE 109 mmol/L (98-107); CREATININE 0.72 mg/dL (0.55-1.02)
[2020-11-12 22:57] LABS: ALKALINE PHOSPHATASE 47 U/L (45-117); BILIRUBIN,TOTAL 0.3 mg/dL (0.2-1.0); TOTAL PROTEIN 6.7 g/dL (6.4-8.2)
[2020-11-12 23:06] LABS: MICROSCOPIC AUTO
[2020-11-12] MEDS ORDERED: OMNIPAQUE 350 MG/ML, 100ML BOTTLE ONE (23:35)
[2020-11-13 01:14] VITALS: BP 96/55
--- NOTE | 2020-11-13 01:15 | NUR ---
break rn: Patient given discharge instructions and they have confirmed that they understand the instructions. Patient ambulatory with steady gait. nad, denies additional needs at thsi time, all questions answered appropriately. no personal belongings left in room after dc.
== END 2020-11-13 01:17 | disposition home or self-care (01) ==
LOC: ED 22:24
DX: T81.9XXA Unspecified complication of procedure, initial encounter (principal); R10.32 Left lower quadrant pain; R10.31 Right lower quadrant pain; M06.9 Rheumatoid arthritis, unspecified; Z90.710 Acquired absence of both cervix and uterus; Z87.891 Personal history of nicotine dependence; X58.XXXA Exposure to other specified factors, initial encounter; Y93.89 Activity, other specified; Y92.89 Other specified places as the place of occurrence of the external cause; Y99.8 Other external cause status
CPT/HCPCS: 36415; 74177; 80053; 81001; 83690; 84703; 85025; 96374; 96375; 99285; J2270; J2765; Q9967

== ENCOUNTER 2021-05-06 16:37 | Emergency (ER) | payer MEDICAID ==
[~2021-05-06] VITALS: Ht 172.7 cm; Wt 57.2 kg
[~2021-05-06 16:37] MED LIST changes: -ALPR0.5T6 PO; +ALPR0.5T93 PO; -FOLI-17 PO; +FOLI1TAB32 PO; +HYDR-2214; -HYDR-3240; -HYDR-3245 PO; +HYDR1TAB53 PO
--- NOTE | 2021-05-06 17:02 | NUR ---
TASK RN: BUFFY SENT TO LAB
[2021-05-06 17:13] LABS: MICROSCOPIC NOT IND
[2021-05-06 17:36] LABS: BASOPHILS % (AUTO) 1 % (0-1); EOSINOPHILS % (AUTO) 1 % (1-7); LYMPHOCYTES % (AUTO) 33 % (22-44); MEAN CORPUSCULAR HEMOGLOBIN 29.3 pg (27.0-34.8); MEAN CORPUSCULAR HGB CONC 33.7 g/dL (32.4-35.8); MEAN PLATELET VOLUME 6.7 fL (7.4-10.4); MONOCYTES % (AUTO) 6 % (2-9); NEUTROPHILS % (AUTO) 59 % (42-75); PLATELET COUNT 328 x10^3/uL (130-400); RED BLOOD COUNT 4.34 x10^6/uL (3.82-5.3); RED CELL DISTRIBUTION WIDTH 13.3 % (9.6-15.2)
[2021-05-06 17:48] LABS: ALBUMIN 3.9 g/dL (3.4-5.0); ANION GAP 6 mmol/L (5-15); CALCIUM 8.9 mg/dL (8.5-10.1); CHLORIDE 110 mmol/L (98-107)
--- NOTE | 2021-05-06 17:58 | NUR ---
PT TO ULTRASOUND W TECH
[2021-05-06] MEDS ORDERED: SODIUM CHLORIDE FLUSH 10ML SYR IVF ONE (18:30)
[2021-05-06] MEDS ORDERED: HYDROmorphone 1 MG/ML, 1ML INJ IV ONE ×2 (18:30→20:00)
[2021-05-06] MEDS ORDERED: HYDROmorphone 1 MG/ML, 1ML INJ ONE ×2 (18:49→20:37)
--- NOTE | 2021-05-06 18:53 | NUR ---
ELVER (RN) IS ASSUMING CARE OF THIS PT AT THIS TIME. SBAR WAS EXCHANGED AT THE BEDSIDE.
[2021-05-06] MEDS ORDERED: PROMETHAZINE 25 MG/ML, 1ML ONE (19:01)
--- NOTE | 2021-05-06 19:05 | NUR ---
PT MEDICATED FOR NAUSEA PER DR ARANDA
--- NOTE | 2021-05-06 19:09 | NUR ---
PT RESTING ON SHERRIE PAIGE
[2021-05-06] MEDS ORDERED: PROMETHAZINE 25 MG/ML, 1ML IM ONE (19:30)
[2021-05-06] MEDS ORDERED: LORazepam 2 MG/ML, 1ML IVPush ONE (20:00)
[2021-05-06 20:16] LABS: ALANINE AMINOTRANSFERASE 20 U/L (12-78); ALBUMIN 3.9 g/dL (3.4-5.0); ANION GAP 8 mmol/L (5-15); CALCIUM 8.9 mg/dL (8.5-10.1); CHLORIDE 110 mmol/L (98-107); CREATININE 0.68 mg/dL (0.55-1.02)
[2021-05-06 20:18] LABS: ALKALINE PHOSPHATASE 43 U/L (45-117); BILIRUBIN,TOTAL 0.5 mg/dL (0.2-1.0); TOTAL PROTEIN 7.2 g/dL (6.4-8.2)
[2021-05-06] MEDS ORDERED: LORazepam 2 MG/ML, 1ML ONE (20:29)
[2021-05-06] MEDS ORDERED: METOCLOPRAMIDE 5 MG/ML, 2ML ONE (20:37)
[2021-05-06] MEDS ORDERED: METOCLOPRAMIDE 5 MG/ML, 2ML IVPush ONE (21:00)
--- NOTE | 2021-05-06 21:33 | NUR ---
PT SLEEPING VERY COMFORTABLY. ASHLIE
[2021-05-07 00:01] VITALS: BP 108/66
--- NOTE | 2021-05-07 00:26 | NUR ---
Patient/Caregiver given discharge instructions and they have confirmed that they understand the instructions. Patient ambulatory with steady gait. NAD, all questions answered appropriately, denies additional needs at this time. No personal belongings left in room after discharge.
== END 2021-05-07 00:27 | disposition home or self-care (01) ==
LOC: ED 18:13
DX: R10.2 Pelvic and perineal pain (principal); N94.10 Unspecified dyspareunia
CPT/HCPCS: 36415; 74176; 76856; 80048; 80053; 81003; 82040; 85025; 96372; 96374; 96375; 96376; 99285; J1170; J2060; J2550; J2765

== ENCOUNTER 2021-05-12 21:07 | Emergency (ER) | payer MEDICAID ==
[~2021-05-12] VITALS: Ht 175.3 cm; Wt 58.3 kg
[2021-05-12] MEDS ORDERED: SODIUM CHLORIDE FLUSH 10ML SYR IVF ONE (22:00)
[2021-05-12] MEDS ORDERED: DOXYCYCLINE 100MG TABLET PO ONE (22:00)
[2021-05-12] MEDS ORDERED: SODIUM CHLORIDE 0.9% 1,000ML IVBOLUS ONE (22:00)
[2021-05-12] MEDS ORDERED: PROMETHAZINE 25 MG/ML, 1ML IM ONE (22:00)
[2021-05-12] MEDS ORDERED: CEFOTETAN PMX 2GM/50ML 50 ML IVPB ONE (22:00)
[2021-05-12 22:02] LABS: MICROSCOPIC NOT IND
[2021-05-12 22:33] LABS: BASOPHILS % (AUTO) 1 % (0-1); EOSINOPHILS % (AUTO) 3 % (1-7); LYMPHOCYTES % (AUTO) 44 % (22-44); MEAN CORPUSCULAR HEMOGLOBIN 29.5 pg (27.0-34.8); MEAN CORPUSCULAR HGB CONC 33.9 g/dL (32.4-35.8); MEAN PLATELET VOLUME 6.9 fL (7.4-10.4); MONOCYTES % (AUTO) 6 % (2-9); NEUTROPHILS % (AUTO) 45 % (42-75); PLATELET COUNT 307 x10^3/uL (130-400); RED BLOOD COUNT 4.09 x10^6/uL (3.82-5.3); RED CELL DISTRIBUTION WIDTH 13.4 % (9.6-15.2)
[2021-05-12] MEDS: MORPHINE SULFATE 4 MG/ML, 1ML IVPush PRN (22:37)
--- NOTE | 2021-05-12 22:39 | NUR ---
PIV PLACED AND ONE SET OF BLOD CULTURES DRAWN PER [facility]. ABX STARTED AFTER BC DRAWN. PT MEDICATED FOR PAIN AND NAUSEA PER EMAR
[2021-05-12 22:44] LABS: ALANINE AMINOTRANSFERASE 21 U/L (12-78); ALBUMIN 3.7 g/dL (3.4-5.0); ANION GAP 4 mmol/L (5-15); CALCIUM 8.5 mg/dL (8.5-10.1); CHLORIDE 111 mmol/L (98-107); CREATININE 0.64 mg/dL (0.55-1.02)
[2021-05-12 22:46] LABS: ALKALINE PHOSPHATASE 39 U/L (45-117); BILIRUBIN,TOTAL 0.2 mg/dL (0.2-1.0); TOTAL PROTEIN 6.9 g/dL (6.4-8.2)
--- NOTE | 2021-05-12 23:20 | NUR ---
bedside report to hua ramirez
--- NOTE | 2021-05-12 23:24 | NUR ---
PT AMBULATED TO BATHROOM WITH STEADY GAIT.
[2021-05-12 23:30] LABS: WET PREP WBCS FEW (FEW)
[2021-05-12] MEDS ORDERED: HYDROmorphone 1 MG/ML, 1ML INJ IV ONE (23:30)
[2021-05-12 23:31] LABS: CLUE CELLS PRESENT (NONE SEEN)
[2021-05-12] MEDS ORDERED: DOXYCYCLINE 100MG TABLET ONE (23:45)
[2021-05-12] MEDS ORDERED: HYDROmorphone 1 MG/ML, 1ML INJ ONE (23:45)
--- NOTE | 2021-05-12 23:58 | NUR ---
US AT BEDSIDE WITH PT
[2021-05-13] MEDS ORDERED: METOCLOPRAMIDE 5 MG/ML, 2ML ONE (01:16)
[2021-05-13] MEDS ORDERED: MORPHINE SULFATE 4 MG/ML, 1ML ONE (01:16)
[2021-05-13] MEDS: MORPHINE SULFATE 4 MG/ML, 1ML IVPush PRN (01:26)
[2021-05-13 01:27] VITALS: BP 110/70
[2021-05-13] MEDS ORDERED: METOCLOPRAMIDE 5 MG/ML, 2ML IVPush ONE (01:30)
[2021-05-13] MEDS ORDERED: DIPHENHYDRAMINE 50 MG/ML, 1ML ONE (01:36)
--- NOTE | 2021-05-13 01:42 | NUR ---
PT VEINS ON LEFT ARM LOOK REDDENED AFTER RECIEVING REGLAN AND MORPHINE. MD ORDERED 25MG BENADRYL VERBAL. WHEN GOING BACK INTO ROOM PTS RED VEINS BEGAN TO CLEAR UP. HELD BENADRYL. WILL CONTINUE TO MONITOR IN CASE BENEDRYL IS NEEDED.
--- NOTE | 2021-05-13 02:04 | NUR ---
Patient/Caregiver given discharge instructions and they have confirmed that they understand the instructions. Patient ambulatory with steady gait. NAD, all questions answered appropriately, denies additional needs at this time. No personal belongings left in room after discharge. pt arm evaluated and veins went back to normal. Benadryl was not needed. Pt family member driving pt home.
== END 2021-05-13 02:06 | disposition home or self-care (01) ==
LOC: ED 23:02
DX: N73.0 Acute parametritis and pelvic cellulitis (principal); N76.0 Acute vaginitis; Z90.710 Acquired absence of both cervix and uterus; Z90.721 Acquired absence of ovaries, unilateral
CPT/HCPCS: 36415; 76830; 80053; 81003; 85025; 87210; 87491; 87591; 87808; 96365; 96372; 96375; 96376; 99284; J1170; J2270; J2550; J2765; J7030

== ENCOUNTER 2021-06-16 16:03 | Emergency (ER) | payer MEDICAID ==
[~2021-06-16] VITALS: Ht 175.3 cm; Wt 56.2 kg
--- NOTE | 2021-06-16 16:30 | NUR ---
pt presents with c/c of intermittent, sharp 7/10 RLQ pain with nausea and headache x 1 day. States she has a hx of bladder sling placed Oct 2020 and has been having this pain intermittently since then. Pt states she was seen for similar complaint recently, dx with PID - unable to f/u with OB since dc. Pt connected to monitor, UA collected and sent. Awaiting provider eval.
--- NOTE | 2021-06-16 17:00 | NUR ---
Med student at bedside for eval.
[2021-06-16] MEDS ORDERED: HYDROcodone/APAP 5/325 TABLET ONE (17:57)
[2021-06-16] MEDS ORDERED: HYDROcodone/APAP 5/325 TABLET PO ONE (18:00)
[2021-06-16 18:02] LABS: MICROSCOPIC INDICATED
--- NOTE | 2021-06-16 18:04 | NUR ---
Pt ambulatory to bathroom with steady gait.
[2021-06-16] MEDS ORDERED: PROMETHAZINE 25 MG/ML, 1ML ONE (18:11)
[2021-06-16 18:12] LABS: BASOPHILS % (AUTO) 1 % (0-1); EOSINOPHILS % (AUTO) 1 % (1-7); LYMPHOCYTES % (AUTO) 33 % (22-44); MEAN CORPUSCULAR HEMOGLOBIN 29.5 pg (27.0-34.8); MEAN CORPUSCULAR HGB CONC 34.2 g/dL (32.4-35.8); MEAN PLATELET VOLUME 7.1 fL (7.4-10.4); MONOCYTES % (AUTO) 7 % (2-9); NEUTROPHILS % (AUTO) 58 % (42-75); PLATELET COUNT 278 x10^3/uL (130-400); RED BLOOD COUNT 4.38 x10^6/uL (3.82-5.3); RED CELL DISTRIBUTION WIDTH 13.2 % (9.6-15.2)
[2021-06-16 18:13] LABS: ALBUMIN 3.8 g/dL (3.4-5.0); ANION GAP 8 mmol/L (5-15); CHLORIDE 109 mmol/L (98-107); CREATININE 0.57 mg/dL (0.55-1.02)
[2021-06-16 18:22] LABS: CLUE CELLS NONE SEEN (NONE SEEN); WET PREP WBCS NONE SEEN (FEW)
[2021-06-16] MEDS ORDERED: PROMETHAZINE 25 MG/ML, 1ML IM ONE (18:30)
--- NOTE | 2021-06-16 19:04 | NUR ---
Report to MARCO Gutiérrez, to assume full care, all questions answered. Awaiting US.
[2021-06-16 19:15] VITALS: BP 98/63
--- NOTE | 2021-06-16 20:27 | NUR ---
ALL RESULTS BACK CHART UP FOR RECHECK PT TO BE DC HOME
== END 2021-06-16 16:34 | disposition home or self-care (01) ==
LOC: ED 16:33
DX: R10.2 Pelvic and perineal pain (principal); G89.29 Other chronic pain; N89.8 Other specified noninflammatory disorders of vagina; R11.2 Nausea with vomiting, unspecified
CPT/HCPCS: 36415; 76830; 80048; 81001; 82040; 84703; 85025; 87086; 87210; 87491; 87591; 87808; 96372; 99284; J2550

== ENCOUNTER 2021-07-09 16:18 | Emergency (ER) | payer MEDICAID ==
[~2021-07-09] VITALS: Ht 175.3 cm; Wt 54.0 kg
[2021-07-09 16:23] VITALS: BP 131/85
--- NOTE | 2021-07-09 16:48 | NUR ---
[facility]
== END 2021-07-09 17:58 | disposition home or self-care (01) ==
LOC: ED 17:40
DX: J06.9 Acute upper respiratory infection, unspecified (principal); Z20.822 Contact with and (suspected) exposure to COVID-19; R94.31 Abnormal electrocardiogram [ECG] [EKG]; G43.909 Migraine, unspecified, not intractable, without status migrainosus
CPT/HCPCS: 93005; 99284; U0003; U0005

== ENCOUNTER 2021-07-21 08:34 | Emergency (ER) | payer MEDICAID ==
[~2021-07-21] VITALS: Ht 175.3 cm; Wt 55.1 kg
--- NOTE | 2021-07-21 09:40 | NUR ---
Pt walked back from lobby to room at this time. Steady upon ambulation. No apparent distress noted. Resp even and unlabored. Skin pink, warm and dry. Assumed care of patient at this time.
--- NOTE | 2021-07-21 09:50 | NUR ---
ERMD Law at bedside for recheck/explanation of results.
[2021-07-21 10:31] VITALS: BP 133/78
== END 2021-07-21 10:32 | disposition home or self-care (01) ==
LOC: ED 08:38
DX: J12.9 Viral pneumonia, unspecified (principal); Z20.822 Contact with and (suspected) exposure to COVID-19; R07.89 Other chest pain
CPT/HCPCS: 71045; 99284; U0003; U0005

== ENCOUNTER 2021-07-27 09:14 | Emergency (ER) | payer MEDICAID ==
[~2021-07-27] VITALS: Ht 175.3 cm; Wt 55.2 kg
--- NOTE | 2021-07-27 09:51 | NUR ---
FIRST CONTACT: PT HERE FOR CHEST PAIN. STATES SHE HAS HISTORY OF BIPOLAR AND HAS BEEN MANIC FOR A WEEK AND CHEST PAIN COULD BE CAUSE OF STRESS AND ANXIETY. PT TO ROOM WITH STEADY GAIT. ATTACHED TO MONITORS. VSS. DAILEY. SON AT BEDSIDE.
[2021-07-27] MEDS ORDERED: KETOROLAC 60 MG/2 ML ONE (10:18)
[2021-07-27 10:26] LABS: BASOPHILS % (AUTO) 1 % (0-1); EOSINOPHILS % (AUTO) 2 % (1-7); LYMPHOCYTES % (AUTO) 39 % (22-44); MEAN CORPUSCULAR HEMOGLOBIN 29.6 pg (27.0-34.8); MEAN CORPUSCULAR HGB CONC 34.3 g/dL (32.4-35.8); MEAN PLATELET VOLUME 6.9 fL (7.4-10.4); MONOCYTES % (AUTO) 8 % (2-9); NEUTROPHILS % (AUTO) 50 % (42-75); PLATELET COUNT 327 x10^3/uL (130-400); RED BLOOD COUNT 4.39 x10^6/uL (3.82-5.3); RED CELL DISTRIBUTION WIDTH 13.1 % (9.6-15.2)
[2021-07-27] MEDS ORDERED: KETOROLAC 30 MG/1 ML IM ONE (10:30)
[2021-07-27 10:39] LABS: ALBUMIN 3.9 g/dL (3.4-5.0); ANION GAP 7 mmol/L (5-15); CALCIUM 8.7 mg/dL (8.5-10.1); CHLORIDE 110 mmol/L (98-107); CREATININE 0.57 mg/dL (0.55-1.02)
[2021-07-27 10:42] LABS: TROPONIN I < 0.015 ng/mL (0.000-0.045)
[2021-07-27 10:59] VITALS: BP 118/53
--- NOTE | 2021-07-27 11:00 | NUR ---
pt medicated per emar vss nadn
--- NOTE | 2021-07-27 11:25 | NUR ---
Patient given discharge instructions and they have confirmed that they understand the instructions. Patient ambulatory with steady gait. NAD, all questions answered appropriately, denies additional needs at this time. No personal belongings left in room after discharge.
== END 2021-07-27 11:26 | disposition home or self-care (01) ==
LOC: ED 09:19
DX: R07.89 Other chest pain (principal); R00.2 Palpitations
CPT/HCPCS: 36415; 80048; 82040; 84484; 85025; 93005; 96372; 99284; J1885